=== PATIENT | female | born 1975 | race Caucasian/White ===

== ENCOUNTER → 2018-04-09 12:53 | Outpatient (CLI) | payer BC, SELFPAY ==
--- NOTE | 2018-04-09 12:59 | CT_ITS ---
STUDY: CT MAXILLOFACIAL SINUSES REASON FOR EXAM: Female, 43 years old. Sinusitis RADIATION DOSAGE (If Supplied By Facility): CTDIvol = ( 29.38 ) mGy, DLP = ( 341.77 ) mGycm TECHNIQUE: The patient was scanned in a multi detector CT scanner. High resolution axial imaging was performed without the administration of intravenous contrast material. Sagittal and coronal images were reconstructed. Individualized dose optimization techniques were used for this CT. COMPARISON: None. FINDINGS: FRONTAL SINUSES: Normal aeration, without mucosal inflammatory disease. ETHMOIDAL SINUSES: Normal aeration, without mucosal inflammatory disease. MAXILLARY SINUSES: Small mucous retention cysts are present at the base of each maxillary sinus. SPHENOIDAL SINUSES: Normal aeration, without mucosal inflammatory disease. There is patency of the bilateral maxillary infundibuli with normal uncinate processes, ethmoid bullae, and hiatus semilunaris. Normal bilateral middle turbinates. Normal bilateral inferior turbinates. Rightward bowing of the nasal septum with rightward spurring with mild narrowing of the right nasal passage. The visualized osseous structures are normal. The visualized bilateral orbital contents are normal. Superficial and deep facial soft tissues and upper cervical soft tissues exhibit No acute abnormality's. The mastoid air cells and middle ear cavities are clear with symmetric and grossly normal features of the vestibular and acoustic apparatus of the temporal bones. CT/Sinus/Facial Bone IMPRESSION: Small mucous retention cysts are present to the base of each maxillary sinus. There is rightward bowing of the nasal septum. Electronically Signed: Harjeet [place], at 8:55 EDT Tel , Service support ,
== END ==
PROVIDERS: Family Provider Family Medicine; PCP Family Medicine; Visit Provider Otolaryngology Otolaryngology/Facial Plastic Surgery
DX: J32.9 Chronic sinusitis, unspecified (principal)
CPT/HCPCS: 70486

== ENCOUNTER → 2018-07-25 16:25 | Outpatient (CLI) | payer BC, SELFPAY | PROVIDERS: Family Provider Family Medicine; PCP Family Medicine; Referring Provider Otolaryngology; Visit Provider Otolaryngology | DX: J02.9 Acute pharyngitis, unspecified (principal) | CPT/HCPCS: 87070 ==

== ENCOUNTER 2018-08-13 21:05 | Emergency (ER) | payer BC, SELFPAY ==
[2018-08-13 21:05] VITALS: BP 127/88; PULSE 69; RESP 22; TEMP 36.6; O2SAT 98; BMI 24.4
--- NOTE | 2018-08-13 21:15 | RAD_ITS ---
STUDY: X-RAY CHEST REASON FOR EXAM: Female, 43 years old. Chest pain TECHNIQUE: PA and lateral views of the chest. COMPARISON: Prior study of 03/20/2016 FINDINGS: potline monitor leads are present. The lungs are clear and expanded. Hemidiaphragmatic pleural tenting is noted consistent with sequelae of old infectious or inflammatory process. Normal size heart. Normal mediastinum and jem. Normal visualized pulmonary arteries. Normal visualized aortic arch and descending thoracic aorta. Normal visualized thoracic spine. Normal visualized ribs, clavicles, and shoulders. There is no demonstrated abnormality of the visualized soft tissue structures of the upper abdomen. RAD/Chest PA and Lateral IMPRESSION: Hemidiaphragmatic pleural tenting is noted consistent with sequelae of old infectious or inflammatory process. No acute cardiopulmonary disease process is seen. Electronically Signed: Stas Fall MD at 21:59 EDT , Service support ,
--- NOTE | 2018-08-13 21:15 | EKG12_ITS ---
Test Reason : CP Blood Pressure : / mmHG Vent. Rate : 067 BPM Atrial Rate : 067 BPM P-R Int : 134 ms QRS Dur : 096 ms QT Int : 384 ms P-R-T Axes : 074 068 063 degrees QTc Int : 405 ms Normal sinus rhythm Incomplete right bundle branch block Borderline ECG Confirmed by ROLDAN GARCIA, NOE ([id number]), communications editor KASSIE BOYD ([id number]) on 08/15/2018 1:31:04 PM Referred By: Confirmed By:NOE MONTILLA MD
[2018-08-13] MEDS: Aspirin 81 MG TAB.CHEW 324 MG PO (21:27)
[2018-08-13 22:03] LABS: Absolute Lymphocyte Count 1.72 X10^3/ul (0.83-4.51); Basophil# 0.06 X10^3/uL; Basophil% 1.1 % (0-1); Eosinophils% 1.8 % (0-5); Hemoglobin 13.3 g/dl (12.0-15.0); Lymphocyte # 1.72 X10^3/ul (4.0); Lymphocyte % 31.6 % (19-41); Mean Corp Hgb Conc 33.3 g/gl (32-36); Mean Corpuscular Hgb 29.4 pg (27.0-32.0); Mean Corpuscular Volume 88.5 fL (81-99); Mean Platelet Vol. 11.1 fl (6.2-12.0); Monocyte# 0.58 X10^3/uL; Monocyte% 10.6 % (0-10); Neutrophil # 2.99 X10^3/uL (2.7-7.7); Neutrophil % 54.9 % (47-70); Platelet Count 160 K/mm3 (150-450); RBC Distribution Width CV 12.8 % (11.6-14.6); RBC Distribution Width SD 40.9 fl (35.1-43.9); Red Blood Count 4.52 M/mm3 (4.2-5.4); White Blood Count 5.5 K/mm3 (4.4-11.0)
[2018-08-13 22:06] LABS: POSITIVE COUNT NO; POSITIVE DIFFERENTIAL NO; POSITIVE MORPHOLOGY NO
[2018-08-13 22:14] LABS: Anion Gap 6 (5-15); BUN 7 mg/dL (7-18); BUN/Creat Ratio 7.8 RATIO (10-20); Calcium,Total 9.2 mg/dL (8.5-10.1); Chloride 105 mmol/L (98-107); EST Glomerular Filtration Rate 73 mL/min (>60); Est Glom Filt Rate - Afr Amer 88 mL/min (>60); Estimated Creatinine Clearance 83.36 ml/min; Glucose 81 mg/dL (74-106); Potassium 3.2 mmol/L (3.5-5.1); Sodium Level 138 mmol/L (136-145)
[2018-08-13] MEDS: Naproxen 500 MG Tablet PO (22:51)
[2018-08-13] MEDS: Mag Hydrox/Al Hydrox/Simeth 30 ML UDC PO (22:51)
[2018-08-13 22:52] VITALS: BP 110/73; PULSE 76; RESP 14; O2SAT 100
--- NOTE | 2018-08-13 22:58 | ED.RN ---
PATIENT UP TO THE RESTROOM AND C/0 A LITTLE LIGHT HEADED. BP 120/82, HR 66, RESPS 23, PULSE OX 100%.
[2018-08-13 22:59] VITALS: BP 120/80; PULSE 60; RESP 11; O2SAT 100
--- NOTE | 2018-08-13 23:54 | ED.VISSUMM ---
- ER Visit Summary Date of Service: 08/13/18 Chief Complaint: Chest pain History of Present Illness: The patient is a 43 F presenting for evaluation secondary chest pain. Patient reports that since about 1430 today she had a gradual onset of continuous chest pain. Patient reports that it is left-sided and a continuous pressure and cramping type pain that occasionally has stabbing type qualities. Patient reports that it is somewhat worse with exertion she endorses that she has some nausea shortness of breath and lightheadedness associated with this. Patient states that she has a family history of premature cardiac disease, but has no personal history of hypertension diabetes high cholesterol or smoking. She had a history of dilated cardiomyopathy in the past seem to have resolved and she is not currently on any sort of medications. She had a cardiac cath 10 years ago with normal coronary arteries. She denies any DVT or PE risk factors. Review of systems otherwise negative. Physical Examination: Vital signs are within normal limits, patient is afebrile. General: Patient is well-nourished well-developed and in no acute distress. Head: Normocephalic, atraumatic Eyes: Pupils equal round and reactive bilaterally, extra occular motion intact bialterally ENT: Moist mucous membranes Neck: Supple, no lymphadenopathy, no JVD, no meningismus CVS: Heart regular rate and rhythm, no murmurs, rubs or gallops, radial pulses 2+ bilaterally Resp: Respirations nondistressed, lung sounds clear bilaterally Abdomen: Soft, nontender, nondistended, no palpable masses, normal bowel sounds Back: Nontender Extremities: Nontender, atraumatic, active full range of motion, no peripheral edema Skin: warm, no rashes, no petechia Neuro: Alert and oriented x 4, CN 2-12 intact, no lateralizing neurological defecits Psyc: Normal affect Test Results: EKG shows a incomplete right bundle branch block sinus rate [address] segments normal T waves and no changes from a prior EKG performed in 2006. CBC chemistry and troponin are negative. Delta troponin found to be negative Emergency Department Course and Treatment: Patient presented for evaluation secondary chest pain. Workup is negative as noted above patient was given aspirin. Upon presentation the patient had already been having 7 hours of continuous chest pain and had a negative enzyme. Her heart score at the most is a 3. I have discussion with the patient about low risk chest pain, and we made a decision to keep the patient for a 3-hour delta troponin. Patient was administered Naprosyn and GI cocktail and still is complaining of pain. Patient is PERC negative, I do not believe the workup for PE is indicated. 3-hour delta troponin was found to be negative. At this point I believe the patient is safe for discharge. She was recommended to follow-up with her primary care physician, all questions were answered and the patient was discharged. Disposition: Discharge Impression: 1. Chest pain This note was generated with [employer] dictation software. It may contain incorrect words, spelling, and punctuation that were not noted in review of the chart prior to signing ED Disposition - Plan for ED Patient: Disposition: Home or Assisted Living Chief Complaint: Chest Pain Diagnosis: Chest pain Instructions: ED Chest Pain NonCardiac Referrals: Ronnell Carrillo MD [Primary Care Provider] - 3-5 Days
[2018-08-14 00:48] VITALS: BP 117/81; PULSE 59; RESP 18; O2SAT 99
== END 2018-08-14 00:53 | disposition home or self-care (01) ==
PROVIDERS: Emergency Provider Emergency Medicine; Family Provider Family Medicine; PCP Family Medicine
DX: R07.9 Chest pain, unspecified (principal); R11.0 Nausea; R06.00 Dyspnea, unspecified; R42 Dizziness and giddiness; I45.10 Unspecified right bundle-branch block
CPT/HCPCS: 71046; 80048; 84484; 85025; 93005; 99284; A4216